=== PATIENT | male | born 1950 | race Caucasian/White ===

== ENCOUNTER → 2022-11-28 | Outpatient (CLI) | payer MEDICARE, OTHER, SELFPAY ==
--- NOTE | 2022-11-27 | DISC_PTH ---
PATIENT: WILLAM CASTANEDA LOC: [facility] U#:[id number] AGE/SX: 71/M ROOM: RE11/28/[address]: Dr. Ta Garcia DO : 1950 BED: DIS: 11/28/2022 SPEC #: [id number] RECD: 11/28/22 10:58 STATUS: LILIA RELauren #: [id number] REYES: 11/27/22 00:[address]: Ta Garcia DEPT: SURGICAL PATHOLOGY RECD BY: Elmer Mei ENTERED: 11/28/22 10:59 SP TYPE: DISC OTHR DR: No Primary Care Phys [facility] Tissues: Intervertebral disc, NOS Procedures: Surgery Specimen Level III HEADER OPERATION: Right L4 laminectomy, L4-L5 discectomy PRE-OP DIAGNOSIS: Radiculopathy, spinal stenosis, spondylosis, lumbar region TISSUE SUBMITTED: Extradural mass L4 MICROSCOPIC DIAGNOSIS Extradural mass, L4, biopsy: Fragments of degenerating intervertebral disc. Fibrofatty tissue with focal fat necrosis. Nonpolarizable extraneous material. AM:thaddeus 11/29/2022 MICROSCOPIC DESCRIPTION Slides are reviewed. GROSS DESCRIPTION Received in fixative is one container labeled with the patient's name and designated extradural mass L4. The specimen consists of multiple irregular fragments of pink-lockhart soft tissue that in aggregate measure 2.6 x 2.0 x 0.2 cm. The specimen is totally submitted in one cassette. / AM:thaddeus 11/28/2022 TC:5 CPT: 27790
== END | disposition home or self-care (01) ==
PROVIDERS: Referring Provider Orthopaedic Surgery; Visit Provider Orthopaedic Surgery
DX: M47.26 Other spondylosis with radiculopathy, lumbar region (principal)
CPT/HCPCS: 88304